=== PATIENT | male | born 2000 | race Two or more races ===

== ENCOUNTER 2020-09-11 21:11 | Emergency (ER) | payer MEDICAID, OTHER ==
[~2020-09-11] VITALS: Ht 170.2 cm; Wt 74.4 kg
--- NOTE | 2020-09-11 21:51 | NUR ---
PT RESTING IN [facility], ULTRASOUND AT BEDSIDE
[2020-09-11 22:27] VITALS: BP 134/82
== END 2020-09-11 22:45 | disposition home or self-care (01) ==
LOC: ED 22:05
DX: M77.8 Other enthesopathies, not elsewhere classified (principal)
CPT/HCPCS: 99284

== ENCOUNTER 2020-10-28 20:05 | Emergency (ER) | payer OTHER ==
[~2020-10-28] VITALS: Ht 170.2 cm; Wt 81.0 kg
[2020-10-28] MEDS ORDERED: DEXAMETHASONE 4 MG TABLET PO ONE (20:30)
--- NOTE | 2020-10-28 20:30 | NUR ---
pt to room from lobby
[2020-10-28] MEDS ORDERED: DEXAMETHASONE 4 MG TABLET ONE (20:51)
--- NOTE | 2020-10-28 20:55 | NUR ---
PT COMES IN C/O LUMP ON RIGHT SIDE OF NECK X4 DAYS. STATES NO PAIN, NO DIFFICULTY SWALLOWING. MONITORS CONNECTED.
[2020-10-28 21:53] VITALS: BP 107/66
== END 2020-10-28 22:04 | disposition home or self-care (01) ==
LOC: ED 20:55
DX: L04.0 Acute lymphadenitis of face, head and neck (principal); R00.0 Tachycardia, unspecified
CPT/HCPCS: 87081; 87880; 99283